=== PATIENT | male | born 1995 | race African-American/Black ===

== ENCOUNTER 2016-10-30 16:12 | Emergency (ER) | payer OTHER ==
[~2016-10-30] VITALS: Ht 170.2 cm; Wt 70.4 kg
[2016-10-30] MEDS ORDERED: IBUP600T26 PO (16:40)
[2016-10-30] MEDS ORDERED: IBUPROFEN 600 MG TAB PO ONE (16:45)
[2016-10-30 17:29] VITALS: BP 131/61
== END 2016-10-30 17:37 | disposition home or self-care (01) ==
LOC: M ED 17:19
DX: M25.561 Pain in right knee (principal)

== ENCOUNTER 2016-12-13 08:50 | Emergency (ER) | payer OTHER ==
[~2016-12-13] VITALS: Ht 170.2 cm; Wt 68.2 kg
[~2016-12-13 08:50] MED LIST: IBUP-1022 PO
[2016-12-13] MEDS ORDERED: ACETAMINOPHEN 325 MG TAB PO ONE (10:15)
--- NOTE | 2016-12-13 11:08 | REP ---
CHEST, TWO VIEWS: No comparisons. There is no evidence of acute infiltrate. No pleural effusion is seen. The heart is normal in size. The mediastinal silhouette is unremarkable. The visualized osseous structures are intact. IMPRESSION: No acute pulmonary disease. Signed by Tony Adan MD 12/14/2016 05:49 P
[2016-12-13 11:39] VITALS: BP 106/69
== END 2016-12-13 11:39 | disposition home or self-care (01) ==
LOC: M ED 08:50
DX: R07.81 Pleurodynia (principal); R51 Headache; Z77.098 Contact with and (suspected) exposure to other hazardous, chiefly nonmedicinal, chemicals; F17.200 Nicotine dependence, unspecified, uncomplicated

== ENCOUNTER 2017-04-04 16:31 | Emergency (ER) | payer OTHER ==
[~2017-04-04] VITALS: Ht 170.2 cm; Wt 69.1 kg
[2017-04-04 16:36] VITALS: BP 117/73
[2017-04-04] MEDS ORDERED: IBUP-1022 PO (16:43)
[2017-04-04] MEDS ORDERED: IBUP80TA (16:43)
[2017-04-04] MEDS ORDERED: PERCOCET 5MG/325MG TAB PO ONE (18:00)
[2017-04-04] MEDS ORDERED: ISOVUE-370 76% 100ML VIAL (Q9967) As Ordered ONE (18:27)
[2017-04-04] MEDS ORDERED: NS 1,000 ML IV ONE (18:30)
[2017-04-04 18:43] LABS: MEAN CORPUSCULAR HEMOGLOBIN 30.8 pg (27.0-33.0); MEAN CORPUSCULAR HGB CONC 33.8 g/dl (32.0-36.5); MEAN CORPUSCULAR VOLUME 91.1 fl (80.0-96.0); PLATELET COUNT, AUTOMATED 355 10^3/uL (150-450); RED CELL DISTRIBUTION WIDTH 10.9 % (11.5-14.5)
--- NOTE | 2017-04-04 19:49 | REP ---
RIGHT KNEE, TWO VIEWS: HISTORY: Pain. There is no acute fracture or dislocation. The joint spaces are normal in appearance. IMPRESSION:There is no acute fracture or dislocation. Signed by Jose Levine MD 04/04/2017 07:53 P
[2017-04-04 19:57] LABS: ANION GAP 6 MEQ/L (8-16); BLOOD UREA NITROGEN 19 MG/DL (7-18); CALCIUM LEVEL 9.4 MG/DL (8.5-10.1); CARBON DIOXIDE LEVEL 28 MEQ/L (21-32); CHLORIDE LEVEL 105 MEQ/L (98-107); CREATININE FOR GFR 1.08 MG/DL (0.70-1.30); GLUCOSE, FASTING 76 MG/DL (70-105); POTASSIUM SERUM 4.1 MEQ/L (3.5-5.1); SODIUM LEVEL 139 MEQ/L (136-145)
[2017-04-04] MEDS ORDERED: OXYCODONE/APAP 5MG/325MG(BULK FOR ED) 1 TABLET PO ONE (21:30)
[2017-04-04] MEDS ORDERED: KETOROLAC 30 MG/ML VIAL (J1885) IV ONE (21:30)
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
== END 2017-04-04 21:49 | disposition home or self-care (01) ==
LOC: M ED 16:31
DX: M25.551 Pain in right hip (principal); M25.561 Pain in right knee; S30.1XXA Contusion of abdominal wall, initial encounter; V49.49XA Driver injured in collision with other motor vehicles in traffic accident, initial encounter; Y92.410 Unspecified street and highway as the place of occurrence of the external cause; Y93.89 Activity, other specified; Y99.8 Other external cause status; F17.210 Nicotine dependence, cigarettes, uncomplicated
CPT/HCPCS: 71260; 73560; 74177; 80048; 85027; 96374; 99284; J1885; Q9967